=== PATIENT | male | born 1980 | race Caucasian/White ===

== ENCOUNTER → 2020-01-08 | Outpatient (CLI) | payer SELFPAY ==
[2020-01-08 10:55] LABS: A TYPE INFLUENZA AG NEGATIVE (NEGATIVE); B INFLUENZA AG POSITIVE (NEGATIVE)
--- NOTE | 2020-01-08 11:41 | PDOC RDC NOTE ---
C Note - Note Date Date: 01/08/20 Clinic Date and Primary Care Provider: NO LOCALMD Allergy/ Laboratory: No Known Allergies Allergy (Unverified 03/02/12 16:01) 01/08/20 09:32 Throat Throat Culture - Pending Influenza A (Rapid) NEGATIVE (NEGATIVE) 01/08/20 09:55 Influenza B (Rapid) POSITIVE (NEGATIVE) 01/08/20 09:55 Group A Strep Rapid NEGATIVE (NEGATIVE) 01/08/20 09:53 Notes: Patient presented to C for cornoavirus testing based upon 48-72 hours symptoms including night sweats, feeling feverish/chills, nonproductive cough, myalgia, and 1 episode each of diarrhea and emesis yesterday morning. Patient reports Tmax 99.8 F. Denies any SOB, chest pain or pressure, sore throat, rhinorrhea, sinus congestion. Patient's strep and Influenza A were both negative but his influenza B was positive. He does not have a PCP at this time so we will go ahead and submit Rx for Xofluza to his pharmacy ([facility]). Patient reports no allergies to food or medicines. Advised on flu precautions and to report to urgent care or ER if symptoms severe.
== END ==
LOC: RDC 09:45
PROVIDERS: ATTEND Registered Nurse
DX: Z20.828 Contact with and (suspected) exposure to other viral communicable diseases (principal)
CPT/HCPCS: 87070; 87804; 87880